=== PATIENT | female | born 1960 | race Caucasian/White ===

== ENCOUNTER 2016-12-02 16:35 | Emergency (ER) | payer SELFPAY ==
[~2016-12-02] VITALS: Ht 162.6 cm; Wt 78.9 kg
[~2016-12-02 16:35] MED LIST: HYDR-3533 PO
[2016-12-02 16:41] VITALS: BP 121/68; PULSE 86; RESP 18; TEMP 97.7; O2SAT 97
[2016-12-02] MEDS ORDERED: MULTTAB67 PO (16:50)
--- NOTE | 2016-12-02 16:53 | PD ---
HPI Chief Complaint: Skin Problem Time Seen by Provider: 16:47 Travel History International Travel<30 days: No Contact w/Intl Traveler<30days: No Traveled to known affect area: No History of Present Illness HPI 56-year-old female presents to the emergency room for evaluation of an abscess to her right groin that started about 2 weeks ago. Patient states she first noticed it after shaving. States there were 2 small bumps but one of the bumps went away. Patient reports constant, throbbing, severe pain worse with any pressure to the area. Denies fever, nausea, and vomiting. She has associated chills. She has been taking 1000 mg ibuprofen without relief in pain. PFSH Past Medical History Cancer: No Cardiovascular Problems: Yes (chest pains in past) Endocrine: No Genitourinary: Yes (uti) Immune Disorder: No Musculoskeletal: No Neurologic: No Psychiatric: No Reproductive: No Respiratory: Yes (pnemonia) ?: Not Menopausal: Yes Tubal Ligation: Yes Past Surgical History Abdominal Surgery: Yes (TUMMY TUCK) Gynecologic Surgery: Yes (C SECTION) Pacemaker: No Social History Alcohol Use: Yes (SOCIAL) Tobacco Use: Yes (1/2ppd) Substance Use: No Allergies-Medications (Allergen,Severity, Reaction): Coded Allergies: carisoprodol (Unverified Allergy, Intermediate, HIVES, 12/02/16) Reported Meds & Prescriptions Reported Meds & Active Scripts Active Bactrim DS (Sulfamethoxazole-Trimethoprim) 800-160 Mg Tab 1 Tab PO BID Reported Multiple Vitamin 1 Tab 1 Tab PO DAILY Review of Systems Except as stated in HPI: all other systems reviewed are Neg Physical Exam Narrative GENERAL: Well-nourished, well-developed female in no acute distress. Afebrile. Ambulatory. SKIN: Focused skin assessment warm/dry. There is an indurated area in the right groin which measures about 5 cm in diameter. It is fluctuant but there is no pointing or drainage. There is a zone of inflammation around it but no lymphangitis. HEAD: Normocephalic. EYES: No scleral icterus. No injection or drainage. NECK: Supple, trachea midline. No JVD or lymphadenopathy. CARDIOVASCULAR: Regular rate and rhythm without murmurs, gallops, or rubs. RESPIRATORY: Breath sounds equal bilaterally. No accessory muscle use. MUSCULOSKELETAL: No cyanosis, or edema. Data Data Last Documented VS Vital Signs Date Time Temp Pulse Resp B/P (MAP) Pulse Ox O2 Delivery O2 Flow Rate FiO2 12/02/16 16:41 97.7 86 18 121/68 (85) 97 [facility] Medical Decision Making Medical Screen Exam Complete: Yes Emergency Medical Condition: Yes Medical Record Reviewed: Yes Differential Diagnosis Abscess, folliculitis, cellulitis Narrative Course 56-year-old female presents to the emergency room for evaluation of abscess to her right groin that started a few weeks ago. Patient reports increasing pain. Denies systemic signs of infection. She is afebrile and well-appearing in the emergency room. Physical exam reveals a 5 cm area of induration to the right groin with surrounding erythema. Surrounding erythema was outlined in pen. Abscess was drained, see procedure note for details. Patient discharged with prescription for Bactrim and told to follow up with a primary care physician or return for worsening symptoms. She understands and agrees to plan. Procedures Procedure Narrative INCISION AND DRAINAGE OF ABSCESS: The area was prepped and was sterilely draped. A subcutaneous wheal of 1% lidocaine with a total number 3 mL was used to anesthetize the area properly. A number 11 scalpel was used to make a 1 cm incision across the area of the abscess. The abscess was drained, complex loculations were broken down, and irrigated with normal saline. Cultures were obtained. Quarter inch iodoform packing was placed in the wound. Sterile dressing applied. Patient advised to have packing removed in two days. Diagnosis Primary Impression: Groin abscess Referrals: Primary Care Physician Additional Instructions: Rest and drink plenty of fluids. Take Bactrim as directed, until gone. Return to the emergency room in 2 days to have packing removed. If it falls out before, this is okay. Follow up with a primary care physician. Return to emergency room for worsening symptoms, as discussed. Scripts Sulfamethoxazole-Trimethoprim (Bactrim DS) 800-160 Mg Tab 1 TAB PO BID for Infection, #20 TAB 0 Refills Prov: Jose Francisco Dunlap MD 12/02/16 Disposition: 01 DISCHARGE HOME Condition: Stable Yajaira Ling Dec 02, 2016 16:53
[2016-12-02] MEDS ORDERED: BACT800T5 PO (16:54)
== END 2016-12-02 17:23 | disposition home or self-care (01) ==
LOC: PHEFT 16:35
DX: L02.214 Cutaneous abscess of groin (principal)
CPT/HCPCS: 10061; 86403; 87070; 87205